=== PATIENT | male | born 1990 | race Caucasian/White ===

== ENCOUNTER 2023-02-07 18:55 | Emergency (ER) | payer OTHER, SELFPAY ==
[2023-02-07 18:58] VITALS: BP 142/83; PULSE 78; RESP 16; TEMP 36.3; O2SAT 95; BMI 25.8
--- NOTE | 2023-02-07 19:06 | ED_ITS ---
HPI - General Adult General Time Seen by Provider: 19:06 Date Seen: 02/07/23 Chief complaint: Jaw Injury/Pain Stated complaint: facial swelling after dentist Time Seen by Provider: 02/07/23 18:59 Source: patient Mode of arrival: ambulatory Limitations: no limitations History of Present Illness HPI narrative: Elder is a 32-year-old male no real past medical history presents emergency department via private car with facial swelling. Patient states he had oral surgery in [place] yesterday, patient says that he had his last right lower molar removed, procedure went well, he was sent home on some hydrocodone tablets. This morning he developed some right lower jaw swelling that has progressively gotten worse, pain is more on the inside, denies any drainage, he just recently filled his hydrocodone tablets. He has been taking Tylenol and or Motrin for pain, denies any trouble opening his mouth, denies any difficulty with breathing any denies any difficulty with speech, he has not had any fevers or chills, no history of any MRSA in the past. He did use to smoke in the past. There is no radiation of the pain. Patient has been able to tolerate orals. He is not scheduled for any follow-up. Related Data Previous Rx's Medication Instructions Recorded amoxicillin 875 mg-potassium 1 tab PO BID 10 days #20 tabs 02/07/23 clavulanate 125 mg tablet Allergies Allergy/AdvReac Type Severity Reaction Status Date / Time No Known Drug Allergies Allergy Verified 02/07/23 19:00 Review of Systems Status of ROS: Reports: 10 or more systems reviewed and unremarkable except as noted in History and below Exam Narrative: Exam Narrative: General: No obvious distress sitting comfortably, nontoxic in appearance HEENT: Tympanic membranes within normal limits, extraocular muscles intact, no cervical adenopathy Swelling to the mid mandible, minimal tenderness, mild erythema. Mouth: tooth Number 32 is removed, of Vicryl suture in place, no associated abscess present, gingiva is pink, there is increased swelling to the buccal side. No trismus. Lungs: Clear to auscultation bilaterally, no stridor or wheezing Abdomen: Soft nontender Extremity: Moving upper lower extremities with no difficulty Neuro: Alert awake and oriented x3 Const: Vital Signs, click to edit/add: Vital Signs - 24 hr 02/07/23 18:58 Temperature 97.4 F L Pulse Rate [Pulse Oximeter] 78 Respiratory Rate 16 Blood Pressure [Ri t Upper Arm] 142/83 H Pulse Oximetry 95 Oxygen Delivery Me thod Room Air Course Course Hospital Course: 7:00 PM: AIDET performed, vitals are normal, workup will include IM dose ceftriaxone 1 g, plan would be to send him home with Augmentin 875/125 mg b.i.d. over the next 7-10 days, will obtain CBC, CRP and BMP, no appreciable dental abscess for I and D. differential diagnosis include dental abscess, facial cellulitis, dental caries, peritonsillar abscess, gingivitis, periodontitis, si aladenitis, parotitis as well as other etiologies. Reevaluation(s) Reevaluation #1: Patient was updated on his lab results, CBC showed no leukocytosis mildly elevated neutrophils, CRP 1.8, he was given the above care and did well, plan would be to discharge prescription for Augmentin sent, she continue with elevation compression and ice to the area, follow-up with a dental provider over the next 3-5 days, return precautions given. Time: 20:26 Vital Signs Vital signs: Initial Vital Signs Temperature 97.4 F L 02/07/23 18:58 Temperature Source Temporal Artery Scan 02/07/23 18:58 Pulse Rate 78 02/07/23 18:58 Pulse Rhythm 02/07/23 18:58 Pulse Strength 3+ Normal 02/07/23 18:58 Respiratory Rate 16 02/07/23 18:58 Blood Pressure 142/83 H 02/07/23 18:58 Blood Pressure Mean 102 02/07/23 18:58 Blood Pressure Position Sitting 02/07/23 18:58 Pulse Oximetry 95 02/07/23 18:58 Oxygen Delivery Method 02/07/23 18:58 Vital Signs Temperature 97.4 F L 02/07/23 18:58 Pulse Rate 78 02/07/23 18:58 Respiratory Rate 16 02/07/23 18:58 Blood Pressure 142/83 H 02/07/23 18:58 Pulse Oximetry 95 02/07/23 18:58 Oxygen Delivery Method 02/07/23 18:58 Temperature 97.4 F L 02/07/23 18:58 Pulse Rate 78 02/07/23 18:58 Respiratory Rate 16 02/07/23 18:58 Blood Pressure 142/83 H 02/07/23 18:58 Pulse Oximetry 95 02/07/23 18:58 Oxygen Delivery Method 02/07/23 18:58 Medical Decision Making Lab Data Labs: Lab Results 02/07/23 02/07/23 Range/Units 19:28 19:28 WBC 9.78 (4.50-11.00) K/uL RBC 4.22 L (4.30-5.90) m/uL Hgb 12.4 L (13.5-17.5) gm/dL Hct 37.7 (37.0-53.0) % MCV 89 (80-100) fL MCH 29 (26-34) pg MCHC 33 (32-36) gm/dL RDW Coeff of Dion 12.9 (11.5-15.5) % Plt Count 202 (140-440) K/uL Neut % (Auto) 75.7 H (42.0-72.0) % Lymph % (Auto) 12.1 L (20-44) % [place] % (Auto) 9.5 (0.0-11.0) % Eos % (Auto) 2.4 (0.0-7.0) % Baso % (Auto) 0.3 (0.0-3.0) % Neut # (Auto) 7.40 H (1.7-7.0) K/uL Lymph # (Auto) 1.20 (0.90-2.90) K/uL [place] # (Auto) 0.90 (0.00-0.90) K/UL Eos # (Auto) 0.23 (0.00-0.50) K/uL Baso # (Auto) 0.03 (0.00-0.30) K/uL Sodium 139 (135-149) mmol/L Potassium 3.8 (3.6-5.1) mmol/L Chloride 102 (96-114) mmol/L Carbon Dioxide 32 (20-32) mmol/L BUN 16 (5-24) mg/dL Creatinine 0.7 (0.5-1.5) mg/dL Estimated Creat Clear 145.21 Estimated GFR 125 ml/min Glucose 108 (60-115) mg/dL Calcium 8.6 (8.4-10.6) mg/dL C-Reactive Protein 1.8 H (0.5-1.0) mg/dL Discharge Plan Discharge Clinical Impression: Facial swelling, History of recent dental procedure Patient Disposition: Home, Self-Care Condition: Improved Instructions: R.I.C.E. Treatment (ED), Edema (ED) Additional Instructions: Augmentin 875-125 mg tablet twice daily for the next ten days. To follow up with dental care provider in the 3-5 days, return if worening symptoms. Activity Level: No Restrictions Prescriptions: New amoxicillin-pot clavulanate 875-125 mg tablet 1 tab PO BID 10 Days Qty: 20 0RF Stand Alone Forms: [employer] Info Instructions
[2023-02-07] MEDS: LIDOCAINE 1% 5 ml (pf) 5 ML VIAL 2.1 ML IM (19:32)
[2023-02-07] MEDS: AMOXICILLIN/CLAVULANATE 875 mg/125 mg TABLET PO (19:32)
[2023-02-07] MEDS: cefTRIAXone 1 GM VIAL IM (19:32)
[2023-02-07 19:35] LABS: Basophils Absolute Auto 0.03 K/uL (0.00-0.30); Basophils Percent Auto 0.3 % (0.0-3.0); Eosinophils Absolute Auto 0.23 K/uL (0.00-0.50); Eosinophils Percent Auto 2.4 % (0.0-7.0); Hematocrit 37.7 % (37.0-53.0); Hemoglobin* 12.4 gm/dL (13.5-17.5); Lymphocytes Percent Auto 12.1 % (20-44); Mean Corpuscular HGB Conc 33 gm/dL (32-36); Mean Corpuscular Hemoglobin 29 pg (26-34); Mean Corpuscular Volume 89 fL (80-100); Monocytes Percent Auto 9.5 % (0.0-11.0); Neutrophils Percent Auto 75.7 % (42.0-72.0); Platelet Count* 202 K/uL (140-440); RDW Coefficient of Variation % 12.9 % (11.5-15.5); Red Blood Count 4.22 m/uL (4.30-5.90); White Blood Count* 9.78 K/uL (4.50-11.00)
[2023-02-07 19:37] LABS: Slide Review Reflex No
[2023-02-07 19:47] LABS: Chloride* 102 mmol/L (96-114); Potassium* 3.8 mmol/L (3.6-5.1); Sodium* 139 mmol/L (135-149)
[2023-02-07 19:50] LABS: Blood Urea Nitrogen* 16 mg/dL (5-24); Carbon Dioxide* 32 mmol/L (20-32); Creatinine* 0.7 mg/dL (0.5-1.5); Est. Creatinine Clearance* 145.21; Estimated Glomerular Filt Rate 125 ml/min; Glucose* 108 mg/dL (60-115)
[2023-02-07 19:51] LABS: Calcium* 8.6 mg/dL (8.4-10.6)
[2023-02-07 19:53] LABS: C Reactive Protein* 1.8 mg/dL (0.5-1.0)
== END 2023-02-07 20:20 | disposition home or self-care (01) ==
PROVIDERS: Emergency Provider Student in an Organized Health Care Education/Training Program
DX: R22.0 Localized swelling, mass and lump, head (principal); Z98.818 Other dental procedure status
CPT/HCPCS: 36415; 80048; 85025; 86140; 99283; 99284; A9270; J0696

== ENCOUNTER 2025-02-16 03:14 | Emergency (ER) | payer MEDICAID, SELFPAY ==
--- OUTSIDE RECORDS SUMMARY | 2025-02-16 03:17 | XMS_ITS | Clinical Summary ---
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 01/19/2018 Active ibuprofen (ADVIL; MOTRIN) 600 mg tablet Take 600 mg by mouth. 01/19/2018 Active Active Problems Problem Noted Date Diagnosed Date Depression, recurrent 03/09/2018 Anxiety 03/09/2018 TBI (traumatic brain injury) 03/09/2018 Hypothermia 03/09/2018 PTSD (post-traumatic stress disorder) 03/09/2018 Immunizations Immunization Administration Dates Next Due DTaP 07/10/1995, 1,12/28/1990,05/18,02/27/1990 HIB PRP-T (ActHIB,Hiberix) 12/28/1990 Hepatitis B, Unspecified 01/07/1999,03/10/1998,0 12/12/1997 Inactivated Polio Vaccine 07/10/1995,,05/18/1990,02/27 Influenza A (H1N1), Inactivated 10/31/2009 Influenza A (H1N1), Inactiva joss (Age >=3 Years) 11/10/2009 Influenza Virus, Unspecified 11/17/2011, 10/04/2010,10/05/2009,10/09,10/24/2007,10/26/2006 Influenza, IIV3 (Age >=3 years) 10/04/20 10,10/05/2009,10/09/2008,10/24,10/26/2006 Meningococcal Vaccine (Menactra) 07/24/2007 Family History Medical History Relation Name Comments Good Health Father Good Health Mother Relation Name Status Comments Father Alive Mother Alive Social History Tobacco Use Types Packs/Day Years Used Date Smoking Tobacco: Every Day Cigarettes Smokeless Tobacco: Never Tobacco Cessation:Ready to Q uit: Yes; Counseling Given: Yes Alcohol Use Standard Drinks/Week Comments Yes 0 (1 standard drink = 0.6 oz pur e alcohol) PHQ-2 Answer Date Recorded PHQ-2 Score 6 01/19/2019 Sex and Gender Information Value Date Recorded Sex Assigned at Not on file 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 Gender Identity Not on file Sexual Orientation Not on file Obstetrics History Last Filed Vital Signs Vital Sign Reading Time Taken Comments Blood Pressure 164/92 04/06/2020 6:52 PM CDT Pulse 85 04/06/2020 6:52 PM CDT Temperature 37 C (98.6 F) 04/06/2020 6:52 PM CDT Respiratory Rate 18 04/06/2020 6:52 PM CDT Oxygen Saturation 100% 04/06/2020 6:52 PM CDT Inhaled Oxygen Concentration - - Weight 68 kg (150 lb) 04/06/2020 6:52 PM CDT Height 175.3 cm (5' 9) 03/09/2018 4:10 PM CDT Body Mass Index 22.15 03/09/2018 4:10 PM CDT Plan of Treatment Health Maintenance Due Date Last Done Comments Tdap 2000 HIV for age 15-65 2004 Hepatitis C screening for age 18-79 2007 Tetanus booster 2009 BMI (ht and wt on same day) for age 18+ 03/09/2019 03/09/2018 Depression screening for age 12+ 03/09/2019 03/09/2018 COVID-19 vaccine series (2023- season) 2024 Influenza Vaccine (#1) 2024 1, 10/04/2010, 10/04/2010, Additional history exists Lipids for age 35-44 2024 Pneumococcal series for age 6-49 Aged Out No longer eligible based on patient's age to complete this topic Care Teams Odd Jobs Day Worker Relationship Specialty Start Date End Date Emmanuelle Moore NP PCP - General Nurse Practitioner 01/28/14
[2025-02-16 03:23] VITALS: BP 153/74; PULSE 85; RESP 18; TEMP 36.7; O2SAT 98; BMI 25.1
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
[2025-02-16 03:38] LABS: Appearance Urine Clear (Clear); Bilirubin Urine Negative (Negative); Blood Urine Negative (Negative); Color Urine Yellow (Yellow); Glucose Urine Negative (Negative); Ketones Urine Trace (Negative); Leukocyte Esterase Urine Negative (Negative); Nitrite Urine Negative (Negative); Protein Urine Negative (Negative); Urobilinogen Urine 0.2 (0.2-1.0)
[2025-02-16 03:41] LABS: RBC Urine 0-2 (0-2); WBC Urine 0-2 (0-5)
[2025-02-16 03:42] LABS: Basophils Absolute Auto 0.02 K/uL (0.00-0.30); Basophils Percent Auto 0.3 % (0.0-3.0); Hemoglobin* 12.3 gm/dL (13.5-17.5); Immature Granulocytes Abs Auto 0.03 K/uL (0.00-0.30); Immature Granulocytes Pct Auto 0.5 %; Lymphocytes Absolute Auto 1.79 K/uL (0.90-2.90); Lymphocytes Percent Auto 29.7 % (20-44); Mean Corpuscular HGB Conc 32 gm/dL (32-36); Mean Corpuscular Hemoglobin 29 pg (26-34); Mean Corpuscular Volume 91 fL (80-100); Neutrophils Absolute Auto 3.35 K/uL (1.7-7.0); Neutrophils Percent Auto 55.5 % (42.0-72.0); Platelet Count* 271 K/uL (140-440); RDW Coefficient of Variation % 13.8 % (11.5-15.5); Red Blood Count* 4.19 m/uL (4.30-5.90); Slide Review Reflex No; White Blood Count* 6.03 K/uL (4.50-11.00)
[2025-02-16 03:58] LABS: Chloride* 102 mmol/L (96-114); Potassium* 3.9 mmol/L (3.6-5.1); Sodium* 141 mmol/L (135-149)
--- OUTSIDE RECORDS SUMMARY | 2025-02-16 03:58 | XMS_ITS | Clinical Summary ---
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
[2025-02-16 04:02] LABS: Anion Gap 10 mEq/L (7-15); Blood Urea Nitrogen* 13 mg/dL (5-24); Calcium* 9.1 mg/dL (8.4-10.6); Carbon Dioxide* 29 mmol/L (20-32); Creatinine* 0.7 mg/dL (0.5-1.5); Estimated Glomerular Filt Rate 123 ml/min; Glucose* 130 mg/dL (60-115)
[2025-02-16 04:06] LABS: C Reactive Protein* < 0.5 mg/dL (0.5-1.0)
[2025-02-16 04:07] LABS: D Dimer Quantitative* 0.26 ug/ml (0.00-0.50)
[2025-02-16 04:25] VITALS: BP 135/74; PULSE 74; RESP 18; TEMP 36.7; O2SAT 100
== END 2025-02-16 04:24 | disposition home or self-care (01) ==
PROVIDERS: Emergency Provider Family Medicine
DX: R60.9 Edema, unspecified (principal)
CPT/HCPCS: 36415; 80048; 81001; 85025; 85379; 86140; 99283; 99284